=== PATIENT | female | born 1970 | race Caucasian/White ===

== ENCOUNTER → 2016-07-07 | Outpatient (CLI) | payer OTHER ==
--- NOTE | 2016-07-07 22:43 | MG ---
cc: DONOVAN WHITE M.D. Sex: F REQUESTING PHYSICIAN: Dr. Tran. Date: 07/07/2016 HISTORY: An EEG was obtained on this 46-year-old patient being evaluated for seizures. DESCRIPTION: The patient is awake and asleep. The EEG shows a lot of 10-12 per second alpha rhythms in the central and posterior head regions. There is low amplitude 15 to 25 per second activity centrally and frontally. There are some mild shifting of the alpha and some theta rhythms but there is no consistent asymmetry. The patient is awake and drowsy, though predominantly awake. The background is reactive. There is prominent beta activity diffusely during the asleep recording. Later on there is more distinct and sustained sleep stage I and II. There are some K complexes and vertex sharp activity. Hyperventilation disclosed no significant change. Photic stimulation was unremarkable. INTERPRETATION Normal awake and light asleep EEG. Donovan White MD [facility] /9:49 PM /10:42 PM
== END ==
LOC: HEEG 07:07
PROVIDERS: ATTEND Psychiatry & Neurology Neurology
DX: R56.9 Unspecified convulsions (principal)
CPT/HCPCS: 95819